=== PATIENT | male | born 1955 | race Caucasian/White ===

== ENCOUNTER 2018-04-28 16:59 | Emergency (ER) | payer OTHER, SELFPAY ==
[2018-04-28] VITALS (19 sets, daily range): BP systolic 118–160; BP diastolic 57–106; PULSE 48–72; RESP 10–20; TEMP 36.8; O2SAT 95–100
--- NOTE | 2018-04-28 17:09 | DI.RAD.S_ITS ---
PROCEDURE: XR WRIST RT 2V INDICATIONS: injury deformity. TECHNIQUE: 3 views of the wrist were acquired. COMPARISON: None. FINDINGS: Bones: There is comminuted, intra-articular fracture of the distal radial metaphysis with impaction and displacement. There is anterior dislocation of the carpals at the radiocarpal joint. There is complete disruption of the radiocarpal joint. There is a moderately displaced ulnar styloid fracture. No suspicious bony lesions. Soft tissues: No suspicious soft tissue calcifications. IMPRESSION: 1. Comminuted intra-articular fracture of the distal radius with anterior dislocation of carpals at the radiocarpal joint. 2. Mildly displaced ulnar styloid fracture. Dictated by: Win Mei M.D. on 04/28/2018 at 17:37 Approved by: Win Mei M.D. on 04/28/2018 at 17:43
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
[2018-04-28] MEDS: HYDROMORPHONE 1 MG INJ 0.5 MG IV ×2 (17:50→19:14)
[2018-04-28] MEDS: ETOMIDATE 2 MG/ML VIAL 10 MG IV (18:26)
--- NOTE | 2018-04-28 18:29 | DI.RAD.S_ITS ---
PROCEDURE: XR WRIST RT 2V INDICATIONS: post reduction TECHNIQUE: 2 views of the wrist were acquired. COMPARISON: [facility], CR, XR WRIST RT 2V, 04/28/2018, 17:14. FINDINGS: Bones: The right wrist is in a cast. Bone details are obscured. There is comminuted distal radial metaphyseal fracture and dislocation. Displaced ulnar styloid fracture is present. Alignment is minimally improved. Soft tissues: No suspicious soft tissue calcifications. IMPRESSION: Minimal improvement in alignment post close reduction. Dictated by: Win Mei M.D. on 04/28/2018 at 19:35 Approved by: Win Mei M.D. on 04/28/2018 at 19:36
[2018-04-28] MEDS: ETOMIDATE 2 MG/ML VIAL 5 MG IV (18:30)
[2018-04-28] MEDS: TET,DIPH,PERTUSS(ACELL),VAC/PF 0.5 ML SYRINGE IM (18:49)
--- NOTE | 2018-04-28 19:59 | PC.NURSE ---
patient under procedural sedation from [id number]
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
[2018-04-28] MEDS: KETAMINE 500 MG/5 ML INJ 200 MG IV (20:30)
--- NOTE | 2018-04-28 20:45 | DI.RAD.S_ITS ---
PROCEDURE: XR WRIST RT 2V INDICATIONS: post reduction TECHNIQUE: 2 views of the wrist were acquired. COMPARISON: [facility], , XR WRIST RT 2V, 04/28/2018, 17:14. [facility], CR, XR WRIST RT 2V, 04/28/2018, 18:34. FINDINGS: Bones: There is a comminuted, intra-articular fracture of the distal radial metaphysis. There is significantly improved alignment post close reduction. An ulnar styloid fracture is present. Anterior dislocation at the radiocarpal joint is reduced. No suspicious bony lesions. Soft tissues: No suspicious soft tissue calcifications. IMPRESSION: Improved alignment. Dictated by: Win Mei M.D. on 04/28/2018 at 20:56 Approved by: Win Mei M.D. on 04/28/2018 at 20:59
[2018-04-28] MEDS: HYDROMORPHONE 1 MG INJ IV (21:45)
--- NOTE | 2018-04-28 21:48 | PC.NURSE ---
forehead cleansed with hibiclens and bacitracin
--- NOTE | 2018-04-28 21:58 | PC.NURSE ---
rt repositioned head. bag valve mask
[2018-04-28] MEDS: HYDROCODONE/ACET 5/325 PREPACK 1 BOTTLE MISC (22:59)
[2018-04-28] MEDS: ONDANSETRON 4 MG ODT PREPACK 1 BOTTLE MISC (22:59)
[2018-04-28] MEDS: HYDROCODONE/ACET 5/325 TABLET 1 TAB PO (23:00)
== END 2018-04-28 23:18 | disposition home or self-care (01) ==
PROVIDERS: Emergency Provider Emergency Medicine
DX: S52.501A Unspecified fracture of the lower end of right radius, initial encounter for closed fracture (principal); S52.601A Unspecified fracture of lower end of right ulna, initial encounter for closed fracture; S61.215A Laceration without foreign body of left ring finger without damage to nail, initial encounter; V18.2XXA Unspecified pedal cyclist injured in noncollision transport accident in nontraffic accident, initial encounter
CPT/HCPCS: 12002; 25565; 29105; 70450; 72125; 73100; 73110; 90471; 93041; 94770; 96374; 96375; 96376; 99152; 99285; 99291; 99292; 90715; J1170

== ENCOUNTER → 2020-11-29 13:10 | Outpatient (CLI) | payer MEDICARE, SELFPAY ==
[2020-11-29] MEDS: COVID-19 VACC, Ad26(JANSSEN)/PF 0.5 ML IM (13:19)
== END ==
PROVIDERS: Visit Provider Internal Medicine
DX: Z23 Encounter for immunization (principal)
CPT/HCPCS: 0031A; 91303